=== PATIENT | male | born 1960 | race Two or more races ===

== ENCOUNTER 2024-10-22 02:24 | Emergency (ER) | payer BC ==
[2024-10-22 02:34] VITALS: TEMP 97.8; BMI 27.4
[2024-10-22] MEDS ORDERED: LIDOCAINE VISCOUS 2% ORAL/TOP 15 ML UNIT-DOSE CUP ONE (04:16)
[2024-10-22] MEDS: LIDOCAINE VISCOUS 2% ORAL/TOP 15 ML UNIT-DOSE CUP MM ONE (04:17)
[2024-10-22 04:34] VITALS: BP 137/87; PULSE 91; RESP 16
== END 2024-10-22 04:35 | disposition home or self-care (01) ==
LOC: JER 02:24
DX: R11.0 Nausea (principal); J39.2 Other diseases of pharynx; T54.1X1A Toxic effect of other corrosive organic compounds, accidental (unintentional), initial encounter
CPT/HCPCS: 71045-TC-FY; 99283-25